=== PATIENT | male | born 1980 | race Caucasian/White ===

== ENCOUNTER 2021-04-13 00:26 | Emergency (ER) | payer OTHER, SELFPAY ==
[2021-04-13 00:36] VITALS: BP 162/112; PULSE 93; RESP 18; TEMP 36.6; O2SAT 100; BMI 24.3
--- NOTE | 2021-04-13 00:38 | ED_ITS ---
HPI - General Adult General Chief complaint: Wound/Laceration Stated complaint: Cut left hand with hatchet Time Seen by Provider: 04/13/21 00:35 Source: patient Mode of arrival: Ambulatory Limitations: no limitations History of Present Illness HPI narrative: Patient is a 40-year-old male here for evaluation of a cut to his left hand. He states that just prior to coming to the emergency department he was chopping wood and pinched his left hand between the axis and the piece of wood. He does need a updated tetanus shot. No other injuries from the event Related Data Previous Rx's Medication Instructions Recorded cephalexin 500 mg PO QID 5 Days #20 cap 04/13/21 Allergies Allergy/AdvReac Type Severity Reaction Status Date / Time Penicillins Allergy Verified 04/13/21 00:38 Review of Systems Constitutional Constitutional: Denies fever(s) Musculoskeletal Musculoskeletal: Denies tingling Comments: Cut to the left hand Integumentary/Breasts Comments: Cut to the left hand Neurologic Neurologic: Denies tingling Psychiatric Psychiatric: Reports system reviewed and no additional complaints, except as documented Patient History Medical History Healthy adult Social History Smoking Status: Never smoker Exam Initial Vital Signs Initial Vital Signs: Vital Signs Temperature 97.8 F 04/13/21 00:36 Pulse Rate 93 H 04/13/21 00:36 Respiratory Rate 18 04/13/21 00:36 Blood Pressure 162/112 H 04/13/21 00:36 Pulse Oximetry 100 04/13/21 00:36 Const General: cooperative and comfortable Limitations: mental status not altered HENNH Head: normal to inspection and normocephalic Cardio Pulses: radial pulses present on the left Skin Other: Patient with a ?V ?cut to the thenar eminence. Approximately 3 cm total length Extrem General: capillary refill normal Other: Patient has full range of motion of the left thumb Psych Appearance: grossly normal and well kempt Procedures Laceration Repair Laceration 1: Site: hand Side (If applicable): left Size (cm): 3 Description: other (?V ?shaped) Depth: simple, single layer Local Anesthetic: lidocaine 1% and with bicarb Amount of anesthesia used (mL): 3 Pre-repair: irrigated extensively and deep structures intact Skin layer closed with: nylon Size (cm): 4-0 Number of sutures: 3 Technique: simple, interrupted Course Orders Ordered: Discontinued Medications Bacitracin (Bacitracin Oint 0.9 Gm Pckt) 1 applic TOP NOW ONE Stop: 04/13/21 00:54 Last Admin: 04/13/21 01:18 Dose: 1 applic Documented by: SHANIQUA Cephalexin HCl (Cephalexin 250 Mg Capsule) 500 mg PO NOW ONE Stop: 04/13/21 01:08 Last Admin: 04/13/21 01:18 Dose: 500 mg Documented by: SHANIQUA Diphtheria/Tetanus/Acell Pertussis (Tet,Diph,Pertuss(Acell),Vac/Pf 0.5 Ml Syringe) 0.5 ml IM .ONCE ONE Stop: 04/13/21 00:36 Last Admin: 04/13/21 00:45 Dose: 0.5 ml Documented by: SHANIQUA Lidocaine/Sodium Bicarbonate (Lido 1%/Sod Bicarb 8.4% (10ml) 10 Ml Syringe) 10 ml INJ NOW ONE Stop: 04/13/21 00:54 Last Admin: 04/13/21 01:18 Dose: 10 ml Documented by: SHANIQUA Vital Signs Vital signs: Vital Signs - 8 hr 04/13/21 00:36 Temperature 97.8 F Pulse Rate 93 H Respiratory Rate 18 Blood Pressure 162/112 H Pulse Oximetry 100 Medical Decision Making MDM Narrative Medical decision making narrative: Low suspicion for fracture. His tetanus was updated. Wound closed as described above. Will start on antibiotics given the nature of the wound. He was given return precautions and follow-up instructions. He expressed understanding and agreement. Discharge Plan Departure Patient Disposition: Home Clinical Impression: Laceration Instructions: DI for Laceration Repair Activity Restrictions/Additional Instructions: A prescription for antibiotics was electronically transmitted to [facility] here in [place]. The stitches that were placed do need to be removed in 7-10 days. You can contact your primary doctor or come to the walk-in clinic for this. I do recommend that you try to keep the wound as clean as possible. You can shower like normal. You can use open water. Return to the emergency department for any new or worsening symptoms Prescriptions: New cephalexin 500 mg capsule 500 mg PO QID 5 Days Qty: 20 RF: 0
[2021-04-13] MEDS: TET,DIPH,PERTUSS(ACELL),VAC/PF 0.5 ML SYRINGE IM (00:45)
[2021-04-13] MEDS: BACITRACIN OINT 0.9 GM PCKT 1 APPLIC TOP (01:18)
[2021-04-13] MEDS: cephALEXin 250 MG CAPSULE 500 MG PO (01:18)
[2021-04-13] MEDS: LIDO 1%/SOD BICARB 8.4% (10ML) 10 ML SYRINGE INJ (01:18)
== END 2021-04-13 01:19 | disposition home or self-care (01) ==
PROVIDERS: Emergency Provider Emergency Medicine
DX: S61.412A Laceration without foreign body of left hand, initial encounter (principal); W27.8XXA Contact with other nonpowered hand tool, initial encounter; Z23 Encounter for immunization
CPT/HCPCS: 12002; 90471; 99283; 99284; 90715